=== PATIENT | female | born 1965 | race Caucasian/White ===

== ENCOUNTER 2022-05-29 17:49 | Emergency (ER) | payer OTHER ==
[2022-05-29 18:03] VITALS: BP 118/76; PULSE 76; RESP 18; TEMP 97.7; BMI 38.9
[2022-05-29] MEDS ORDERED: ACETAMINOPHEN 500 MG TABLET (FP) PO ONE (19:11)
[2022-05-29] MEDS ORDERED: ACETAMINOPHEN 500 MG TABLET (FP) ONE (19:48)
== END 2022-05-29 20:02 | disposition home or self-care (01) ==
LOC: JER 17:49
DX: S00.03XA Contusion of scalp, initial encounter (principal); W20.8XXA Other cause of strike by thrown, projected or falling object, initial encounter
CPT/HCPCS: 70450-TC; 99284-25

== ENCOUNTER 2022-06-28 19:18 | Observation (INO) | payer OTHER ==
[2022-06-28] MEDS ORDERED: LACTATED RINGERS SOLUTION 1000 ML INFUS.BAG IV ONE (19:55)
[2022-06-28 20:52] LABS: BASO % 0.8 % (0-2.0); EOS % 3.4 % (0-4.5); HEMATOCRIT 36.6 % (32.4-45.2); HEMOGLOBIN 12.5 GM/dL (10.7-15.3); MCH 29.2 pg (25.7-33.7); MEAN CELL VOLUME 85.7 fl (80-96); MEAN PLT VOLUME 9.7 fl (7.5-11.1); MONO % 9.7 % (3.8-10.2); NEUT % 50.1 % (42.8-82.8); PLATELET COUNT 128 10^3/uL (134-434); RBC 4.27 M/mm3 (3.60-5.2); RDW 13.5 % (11.6-15.6); WHITE BLOOD COUNT 5.1 K/mm3 (4.0-10.0)
[2022-06-28 20:56] LABS: VENOUS BASE EXCESS -0.5 mmol/L (-2-2); VENOUS O2 SATURATION 84.6 % (70-80); VENOUS PCO2 38.7 mmHg (38-52); VENOUS PH 7.409 (7.310-7.410)
[2022-06-28 21:09] LABS: CHLORIDE 98 mmol/L (98-107); SODIUM 133 mmol/L (136-145)
[2022-06-28 21:11] LABS: ANION GAP 7 MMOL/L (8-16); BLOOD UREA NITROGEN 13.1 mg/dL (7-18); CALCIUM 9.4 mg/dL (8.5-10.1); CO2 27 mmol/L (21-32); MAGNESIUM 1.6 mg/dL (1.8-2.4)
[2022-06-28 21:12] LABS: ALBUMIN 3.3 g/dl (3.4-5.0); LIPASE 162 U/L (73-393)
[2022-06-28 21:18] LABS: CREATININE 0.7 mg/dL (0.55-1.3); PHOSPHOROUS 3.2 mg/dL (2.5-4.9); SGOT/AST 28 U/L (15-37); SGPT/ALT 33 U/L (13-61)
[2022-06-28 21:19] LABS: TOT PROT 7.4 g/dl (6.4-8.2)
[2022-06-28 21:20] LABS: ALK PHOS 205 U/L (45-117)
[2022-06-28 21:24] LABS: BILIRUBIN,TOTAL 1.4 mg/dL (0.2-1)
[2022-06-28 21:40] LABS: GLUCOSE,RANDOM 410 mg/dL (74-106)
[2022-06-28] MEDS ORDERED: INSULIN REGULAR HUMAN 100 UNITS/ML *VIAL SQ ONE (21:44)
[2022-06-28] MEDS ORDERED: ONDANSETRON 4 MG/2 ML VIAL IVPB ONE (21:57)
[2022-06-28] MEDS ORDERED: ONDANSETRON 4 MG/2 ML VIAL ONE (21:58)
[2022-06-28 23:07] LABS: URINE APPEARANCE CLEAR; URINE BILIRUBIN NEGATIVE (NEGATIVE); URINE COLOR YELLOW; URINE GLUCOSE (UA) 3+ (NEGATIVE); URINE KETONE NEGATIVE (NEGATIVE); URINE LEUK ESTERASE NEGATIVE (NEGATIVE); URINE NITRITE NEGATIVE (NEGATIVE); URINE PROTEIN NEGATIVE (NEGATIVE); URINE UROBILINOGEN 0.2 mg/dL (0.2-1.0)
[2022-06-28] MEDS ORDERED: MAGNESIUM SULF 50% (8.12 MEQ/2 ML-1 GM VIAL) IVPB ONE (23:45)
[2022-06-29] MEDS ORDERED: MAGNESIUM SULFATE IN WATER 2 GM/50 ML IVPB IVPB ONE (00:56)
[2022-06-29] MEDS: INSULIN SLIDING SCALE (NOVOLOG) 1 VIAL SQ SCH ×4 (06:10→21:21)
[2022-06-29 08:18] VITALS: BMI 38.9
[2022-06-29] MEDS ORDERED: INSULIN (LEVEMIR) 100 UNITS/ML UNITS SQ SCH ×2 (10:00→17:15)
[2022-06-29] MEDS: ENOXAPARIN NA (PORCINE) 40 MG/0.4 ML DISP.SYRIN SQ SCH (10:25)
[2022-06-29 10:43] LABS: HEMATOCRIT 35.5 % (32.4-45.2); HEMOGLOBIN 12.4 GM/dL (10.7-15.3); MCH 29.9 pg (25.7-33.7); MEAN CELL VOLUME 85.3 fl (80-96); MEAN PLT VOLUME 10.4 fl (7.5-11.1); PLATELET COUNT 135 10^3/uL (134-434); RBC 4.16 M/mm3 (3.60-5.2); RDW 13.3 % (11.6-15.6); WHITE BLOOD COUNT 5.3 K/mm3 (4.0-10.0)
[2022-06-29 11:05] LABS: ALBUMIN 3.1 g/dl (3.4-5.0); BLOOD UREA NITROGEN 10.5 mg/dL (7-18); CALCIUM 9.2 mg/dL (8.5-10.1)
[2022-06-29 11:08] LABS: CREATININE 0.5 mg/dL (0.55-1.3); MAGNESIUM 1.8 mg/dL (1.8-2.4)
[2022-06-29 11:09] LABS: PHOSPHOROUS 3.1 mg/dL (2.5-4.9)
[2022-06-29 11:10] LABS: BILIRUBIN,TOTAL 1.8 mg/dL (0.2-1); TOT PROT 7.4 g/dl (6.4-8.2)
[2022-06-29] MEDS ORDERED: INSULIN (NOVOLOG) ASPART 100 UNITS/ML 10ML VIAL SQ SCH ×2 (17:15→17:20)
[2022-06-29] MEDS ORDERED: INSULIN (NOVOLOG) ASPART 100 UNITS/ML 10ML VIAL ONE (21:09)
[2022-06-30] MEDS: INSULIN SLIDING SCALE (NOVOLOG) 1 VIAL SQ SCH ×4 (06:36→21:29)
[2022-06-30] MEDS: INSULIN (LEVEMIR) 100 UNITS/ML UNITS SQ SCH ×2 (08:57→21:28)
[2022-06-30 09:50] LABS: BASO % 1.1 % (0-2.0); EOS % 4.3 % (0-4.5); HEMATOCRIT 37.8 % (32.4-45.2); HEMOGLOBIN 13.1 GM/dL (10.7-15.3); LYMPH % 36.8 % (8-40); MCH 29.7 pg (25.7-33.7); MCHC 34.6 g/dl (32.0-36.0); MEAN CELL VOLUME 85.8 fl (80-96); MONO % 10.6 % (3.8-10.2); NEUT % 47.2 % (42.8-82.8); PLATELET COUNT 137 10^3/uL (134-434); RBC 4.41 M/mm3 (3.60-5.2); RDW 13.8 % (11.6-15.6); WHITE BLOOD COUNT 5.4 K/mm3 (4.0-10.0)
[2022-06-30] MEDS: ENOXAPARIN NA (PORCINE) 40 MG/0.4 ML DISP.SYRIN SQ SCH (10:14)
[2022-06-30 10:29] LABS: ALBUMIN 3.1 g/dl (3.4-5.0); CALCIUM 9.7 mg/dL (8.5-10.1); MAGNESIUM 1.7 mg/dL (1.8-2.4)
[2022-06-30 10:32] LABS: CREATININE 0.5 mg/dL (0.55-1.3); PHOSPHOROUS 3.7 mg/dL (2.5-4.9)
[2022-06-30 10:34] LABS: BILIRUBIN,TOTAL 1.5 mg/dL (0.2-1); TOT PROT 7.3 g/dl (6.4-8.2)
[2022-06-30] MEDS: INSULIN (NOVOLOG) ASPART 100 UNITS/ML 10ML VIAL SQ SCH ×2 (11:25→17:09)
[2022-07-01] MEDS: INSULIN SLIDING SCALE (NOVOLOG) 1 VIAL SQ SCH ×2 (06:42→11:52)
[2022-07-01] MEDS: INSULIN (LEVEMIR) 100 UNITS/ML UNITS SQ SCH (06:42)
[2022-07-01] MEDS: INSULIN (NOVOLOG) ASPART 100 UNITS/ML 10ML VIAL SQ SCH ×2 (06:43→11:59)
[2022-07-01] MEDS: ENOXAPARIN NA (PORCINE) 40 MG/0.4 ML DISP.SYRIN SQ SCH (10:11)
[2022-07-01] MEDS ORDERED: INSULIN (NOVOLOG) ASPART 100 UNITS/ML 10ML VIAL ONE (11:50)
[2022-07-01 12:35] VITALS: BP 124/77; PULSE 78; RESP 20; TEMP 97.4
== END 2022-07-01 15:26 | disposition home or self-care (01) ==
LOC: JER 19:18 → JERBED 23:28 → J6S 06-29 04:35
PROVIDERS: ADMIT Internal Medicine; ATTEND Internal Medicine
PROC: 3E023GC Introduction of Other Therapeutic Substance into Muscle, Percutaneous Approach (ICD-10-PCS; principal; 2022-06-28)
PROC: 3E013VG Introduction of Insulin into Subcutaneous Tissue, Percutaneous Approach (ICD-10-PCS; 2022-06-28)
PROC: 3E0337Z Introduction of Electrolytic and Water Balance Substance into Peripheral Vein, Percutaneous Approach (ICD-10-PCS; 2022-06-28)
PROC: 3E033GC Introduction of Other Therapeutic Substance into Peripheral Vein, Percutaneous Approach (ICD-10-PCS; 2022-06-28)
DX: E11.65 Type 2 diabetes mellitus with hyperglycemia (principal); J45.909 Unspecified asthma, uncomplicated; F99 Mental disorder, not otherwise specified; E78.5 Hyperlipidemia, unspecified; R53.1 Weakness; R42 Dizziness and giddiness; E66.01 Morbid (severe) obesity due to excess calories; Z68.39 Body mass index [BMI] 39.0-39.9, adult
CPT/HCPCS: 0241U-QW; 36415; 71045-TC-FY; 80053; 81003; 82803; 82962; 83036; 83605; 83690; 83735; 84100; 84484; 85025; 85027; 87086; 87186; 93005; 93010; 96372; 96374; 99285-25; G0378

== ENCOUNTER 2022-07-12 20:03 | Emergency (ER) | payer OTHER ==
[2022-07-12 20:11] VITALS: BP 126/60; PULSE 82; RESP 20; TEMP 97.8; BMI 38.9
[2022-07-12] MEDS ORDERED: KETOROLAC TROMETHAMINE 30 MG/1 ML VIAL IM ONE (22:01)
[2022-07-12] MEDS ORDERED: KETOROLAC TROMETHAMINE 30 MG/1 ML VIAL ONE (22:06)
== END 2022-07-12 23:14 | disposition home or self-care (01) ==
LOC: JER 20:03 → JERFT 20:03
PROC: 3E0233Z Introduction of Anti-inflammatory into Muscle, Percutaneous Approach (ICD-10-PCS; principal; 2022-07-12)
DX: S63.501A Unspecified sprain of right wrist, initial encounter (principal); M25.531 Pain in right wrist; X58.XXXA Exposure to other specified factors, initial encounter; Y93.02 Activity, running
CPT/HCPCS: 73110-TC-RT-FY; 99284-25

== ENCOUNTER 2022-07-23 17:17 | Emergency (ER) | payer OTHER ==
[2022-07-23 17:20] VITALS: RESP 18; BMI 37.5
[2022-07-23] MEDS ORDERED: ACETAMINOPHEN 325 MG TABLET (FP) PO ONE (23:44)
[2022-07-23] MEDS ORDERED: ACETAMINOPHEN 325 MG TABLET (FP) ONE (23:46)
[2022-07-24 01:21] VITALS: BP 100/54; PULSE 70; TEMP 97.8
== END 2022-07-24 01:56 | disposition home or self-care (01) ==
LOC: JER 17:17
DX: M25.531 Pain in right wrist (principal); M25.561 Pain in right knee; S63.501A Unspecified sprain of right wrist, initial encounter; X58.XXXA Exposure to other specified factors, initial encounter
CPT/HCPCS: 71045-TC-FY; 73030-TC-LT-FY; 73030-TC-RT-FY; 73110-TC-RT-FY; 73562-TC-RT-FY; 82962; 99284-25

== ENCOUNTER 2022-08-27 16:19 | Emergency (ER) | payer OTHER ==
[2022-08-27 16:26] VITALS: BP 124/74; PULSE 78; RESP 18; TEMP 97; BMI 39.6
[2022-08-27] MEDS ORDERED: metFORMIN HCL 500 MG TABLET (FP) PO ONE (17:54)
[2022-08-27] MEDS ORDERED: metFORMIN HCL 500 MG TABLET (FP) ONE (17:57)
== END 2022-08-27 19:42 | disposition home or self-care (01) ==
LOC: JER 16:19
DX: M79.675 Pain in left toe(s) (principal)
CPT/HCPCS: 82962; 99283-25

== ENCOUNTER 2022-08-31 22:19 | Emergency (ER) | payer OTHER ==
[2022-08-31 22:34] VITALS: RESP 18; BMI 36.8
[2022-09-01 00:32] LABS: INR 1.31 (0.83-1.09); PROTHROMBIN TIME (PATIENT) 15.1 SEC (9.7-13.0)
[2022-09-01 00:33] LABS: CALCIUM 9.7 mg/dL (8.5-10.1)
[2022-09-01 00:34] LABS: ALBUMIN 3.6 g/dl (3.4-5.0); BLOOD UREA NITROGEN 27.5 mg/dL (7-18); MAGNESIUM 1.4 mg/dL (1.8-2.4)
[2022-09-01 00:35] LABS: ACTIVATED PTT 32.6 SECONDS (25.2-36.5)
[2022-09-01 00:37] LABS: CREATININE 1.2 mg/dL (0.55-1.3); PHOSPHOROUS 5.4 mg/dL (2.5-4.9)
[2022-09-01 00:38] LABS: BILIRUBIN,TOTAL 1.5 mg/dL (0.2-1)
[2022-09-01 00:49] LABS: BASO % 0.6 % (0-2.0); EOS % 1.5 % (0-4.5); HEMATOCRIT 39.4 % (32.4-45.2); HEMOGLOBIN 13.3 GM/dL (10.7-15.3); LYMPH % 26.5 % (8-40); MCH 28.9 pg (25.7-33.7); MCHC 33.6 g/dl (32.0-36.0); MEAN CELL VOLUME 85.8 fl (80-96); MEAN PLT VOLUME 10.2 fl (7.5-11.1); MONO % 6.7 % (3.8-10.2); NEUT % 64.7 % (42.8-82.8); PLATELET COUNT 190 10^3/uL (134-434); RDW 13.9 % (11.6-15.6); WHITE BLOOD COUNT 11.4 K/mm3 (4.0-10.0)
[2022-09-01] MEDS ORDERED: SODIUM CHLORIDE 0.9% 500 ML INFUS.BAG IV ONE (01:50)
[2022-09-01 03:12] LABS: EPI CELLS 24 /uL (0-25.1); HYALINE CASTS 11 /uL (0-3.1); URINE APPEARANCE CLOUDY; URINE BACTERIA 2669 /uL (0-1359); URINE BILIRUBIN NEGATIVE (NEGATIVE); URINE COLOR DK YELLOW; URINE GLUCOSE (UA) TRACE (NEGATIVE); URINE KETONE TRACE (NEGATIVE); URINE LEUK ESTERASE 2+ (NEGATIVE); URINE NITRITE POSITIVE (NEGATIVE); URINE PROTEIN 2+ (NEGATIVE); URINE UROBILINOGEN 0.2 mg/dL (0.2-1.0); URINE WBC 463 /uL (0-25.8)
[2022-09-01] MEDS ORDERED: CEFTRIAXONE 1 GM in DEXTROSE 5%-WATER - 100 ML IVPB ONE (03:16)
[2022-09-01] MEDS ORDERED: CEFTRIAXONE 1 GM/50 ML BAG ONE (03:27)
[2022-09-01 04:07] VITALS: BP 126/61; PULSE 65; TEMP 97.5
== END 2022-09-01 04:07 | disposition home or self-care (01) ==
LOC: JER 22:19
DX: R10.32 Left lower quadrant pain (principal); R61 Generalized hyperhidrosis; R19.7 Diarrhea, unspecified; N39.0 Urinary tract infection, site not specified
CPT/HCPCS: 36415; 74177-TC; 80053; 81003; 83735; 84100; 84484; 85025; 85610; 85730; 87086; 87186; 93005; 93010; 99285-25; Q9967

== ENCOUNTER 2022-11-27 15:59 | Emergency (ER) | payer OTHER ==
[2022-11-27 16:12] VITALS: BP 127/69; PULSE 76; RESP 16; TEMP 98.1; BMI 37.3
[2022-11-27] MEDS ORDERED: ACETAMINOPHEN 500 MG TABLET (FP) PO ONE (18:24)
[2022-11-27 18:35] LABS: BASO % 0.8 % (0-2.0); EOS % 3.7 % (0-4.5); HEMATOCRIT 32.5 % (32.4-45.2); HEMOGLOBIN 11.4 GM/dL (10.7-15.3); LYMPH % 40.8 % (8-40); MCHC 35.1 g/dl (32.0-36.0); MEAN CELL VOLUME 85.4 fl (80-96); MEAN PLT VOLUME 9.5 fl (7.5-11.1); MONO % 9.7 % (3.8-10.2); PLATELET COUNT 124 10^3/uL (134-434); RBC 3.81 M/mm3 (3.60-5.2)
[2022-11-27] MEDS ORDERED: ACETAMINOPHEN 500 MG TABLET (FP) ONE ×2 (18:51→18:52)
[2022-11-27 19:07] LABS: CALCIUM 8.3 mg/dL (8.5-10.1)
[2022-11-27 19:08] LABS: BLOOD UREA NITROGEN 12.3 mg/dL (7-18)
[2022-11-27 19:10] LABS: CREATININE 0.7 mg/dL (0.55-1.3)
[2022-11-27 19:12] LABS: BILIRUBIN,TOTAL 1.3 mg/dL (0.2-1); TOT PROT 6.9 g/dl (6.4-8.2)
[2022-11-27 19:15] LABS: N-TERMINAL BNP 73.7 pg/ml (5-125)
[2022-11-27] MEDS ORDERED: SODIUM CHLORIDE 0.9% 500 ML INFUS.BAG IV ONE (19:23)
== END 2022-11-27 21:19 | disposition home or self-care (01) ==
LOC: JER 15:59
DX: M54.6 Pain in thoracic spine (principal); M79.89 Other specified soft tissue disorders; R73.9 Hyperglycemia, unspecified; Z20.822 Contact with and (suspected) exposure to COVID-19
CPT/HCPCS: 0241U-QW; 36415; 71046-TC-FY; 80053; 82962; 83880; 85025; 99284-25

== ENCOUNTER 2023-01-29 16:32 | Emergency (ER) | payer OTHER ==
[2023-01-29 16:55] VITALS: BP 133/66; PULSE 80; RESP 18; TEMP 98.3; BMI 36.6
[2023-01-29] MEDS ORDERED: ALBUTEROL SO4 2.5/IPRATROPIUM 0.5 INH SOL 3 ML VIAL.NEB. NEB ONE ×2 (17:34→17:44)
[2023-01-29] MEDS ORDERED: guaiFENesin/D-M SUGAR-FREE/ACLHOL-FREE (200 MG/10 MG) 5 ML PO ONE (17:35)
[2023-01-29] MEDS ORDERED: ACETAMINOPHEN 325 MG TABLET (FP) ONE (17:36)
[2023-01-29] MEDS ORDERED: ACETAMINOPHEN 500 MG TABLET (FP) PO ONE (17:36)
[2023-01-29] MEDS ORDERED: guaiFENesin/D-M SUGAR-FREE/ACLHOL-FREE 5 ML UNIT DOSE PO ONE (18:00)
== END 2023-01-29 19:07 | disposition home or self-care (01) ==
LOC: JERFT 16:32
PROC: 3E0F7GC Introduction of Other Therapeutic Substance into Respiratory Tract, Via Natural or Artificial Opening (ICD-10-PCS; principal; 2023-01-29)
DX: U07.1 COVID-19 (principal)
CPT/HCPCS: 0241U-QW; 94640; 99283-25

== ENCOUNTER 2023-02-24 18:23 | Emergency (ER) | payer OTHER ==
[2023-02-24 18:31] VITALS: BP 125/60; PULSE 84; RESP 18; TEMP 98.2; BMI 38.9
[2023-02-24] MEDS ORDERED: DEXAMETHASONE SOD PHOSPHATE 4 MG/1 ML VIAL IM ONE (18:38)
[2023-02-24] MEDS ORDERED: DEXAMETHASONE SOD PHOSPHATE 4 MG/1 ML VIAL ONE (18:40)
[2023-02-24] MEDS ORDERED: ACETAMINOPHEN 500 MG TABLET (FP) PO ONE (19:19)
[2023-02-24] MEDS ORDERED: ACETAMINOPHEN 500 MG TABLET (FP) ONE (19:20)
[2023-02-24 19:35] LABS: THROAT:GRP A STREP DETECTED (NOTDETECTED)
[2023-02-24] MEDS ORDERED: AMOXICILLIN 500 MG CAPSULE (FP) PO ONE (20:42)
[2023-02-24] MEDS ORDERED: AMOXICILLIN 250 MG CAPSULE ONE (20:44)
== END 2023-02-24 19:40 | disposition home or self-care (01) ==
LOC: JERFT 18:23
PROC: 3E023GC Introduction of Other Therapeutic Substance into Muscle, Percutaneous Approach (ICD-10-PCS; principal; 2023-02-24)
DX: J02.0 Streptococcal pharyngitis (principal); R07.0 Pain in throat; M54.9 Dorsalgia, unspecified; R05.9 Cough, unspecified; R09.3 Abnormal sputum; R09.81 Nasal congestion; Z20.822 Contact with and (suspected) exposure to COVID-19
CPT/HCPCS: 0241U-QW; 87651; 96372; 99284-25

== ENCOUNTER 2023-11-05 22:29 | Emergency (ER) | payer OTHER ==
[2023-11-05 22:41] VITALS: BP 131/70; PULSE 77; RESP 18; TEMP 97.8; BMI 37.8
[2023-11-05] MEDS ORDERED: IBUPROFEN 600 MG TABLET (FP) PO ONE (23:19)
[2023-11-05] MEDS: IBUPROFEN 600 MG TABLET (FP) PO ONE (23:20)
[2023-11-06] MEDS: SODIUM CHLORIDE 0.9% 500 ML INFUS.BAG IV ONE ×2 (01:26)
[2023-11-06 01:48] LABS: BASO % 0.9 % (0-2.0); HEMATOCRIT 33.4 % (32.4-45.2); HEMOGLOBIN 11.4 GM/dL (10.7-15.3); LYMPH % 35.5 % (8-40); MCH 30.5 pg (25.7-33.7); MCHC 34.1 g/dl (32.0-36.0); MEAN CELL VOLUME 89.6 fl (80-96); MEAN PLT VOLUME 9.4 fl (7.5-11.1); MONO % 9.1 % (3.8-10.2); NEUT % 50.5 % (42.8-82.8); PLATELET COUNT 117 10^3/uL (134-434); RBC 3.73 M/mm3 (3.60-5.2); RDW 13.7 % (11.6-15.6); WHITE BLOOD COUNT 4.2 K/mm3 (4.0-10.0)
[2023-11-06 02:17] LABS: CHLORIDE 102 mmol/L (98-107); POTASSIUM 4.1 mmol/L (3.5-5.1); SODIUM 135 mmol/L (136-145)
[2023-11-06 02:19] LABS: ALBUMIN 3.2 g/dl (3.4-5.0); ANION GAP 9 mmol/L (4-13); BLOOD UREA NITROGEN 14.3 mg/dL (7-18); CALCIUM 8.9 mg/dL (8.5-10.1); CO2 25 mmol/L (21-32)
[2023-11-06 02:22] LABS: SGOT/AST 37 U/L (15-37); SGPT/ALT 36 U/L (13-61)
[2023-11-06 02:23] LABS: CREATININE 0.7 mg/dL (0.55-1.3)
[2023-11-06 02:24] LABS: BILIRUBIN,TOTAL 1.8 mg/dL (0.2-1); TOT PROT 7.1 g/dl (6.4-8.2)
[2023-11-06 02:25] LABS: ALK PHOS 229 U/L (45-117)
[2023-11-06] MEDS ORDERED: INSULIN (NOVOLOG MIX 70/30) 100 UNITS/ML MDV SQ ONE (02:34)
[2023-11-06] MEDS: INSULIN (NOVOLOG MIX 70/30) 100 UNITS/ML MDV SQ ONE (02:37)
[2023-11-06 02:42] LABS: HIV INTERPRETATION NEGATIVE (NEGATIVE)
[2023-11-06] MEDS ORDERED: metFORMIN HCL 500 MG TABLET (FP) ONE (03:04)
[2023-11-06] MEDS: metFORMIN HCL 500 MG TABLET (FP) PO ONE (03:11)
[2023-11-06 03:52] LABS: GLUCOSE,RANDOM 550 mg/dL (74-106)
== END 2023-11-06 03:15 | disposition home or self-care (01) ==
LOC: JER 22:29
PROC: 3E013VG Introduction of Insulin into Subcutaneous Tissue, Percutaneous Approach (ICD-10-PCS; principal; 2023-11-06)
DX: S99.922A Unspecified injury of left foot, initial encounter (principal); E11.65 Type 2 diabetes mellitus with hyperglycemia; W22.8XXA Striking against or struck by other objects, initial encounter; Z20.822 Contact with and (suspected) exposure to COVID-19
CPT/HCPCS: 0241U-QW; 36415; 73660-TC-LT-FY; 80053; 82010; 82962; 85025; 87389; 87536; 96372; 99284-25

== ENCOUNTER 2024-10-10 01:39 | Emergency (ER) | payer OTHER ==
[2024-10-10 01:51] VITALS: PULSE 82; RESP 18; TEMP 98.7; BMI 35.4
[2024-10-10] MEDS ORDERED: SULFAMETHOXAZOLE/TRIMETHOPRIM 800MG/160MG D.S. TABLET ONE (02:27)
[2024-10-10] MEDS ORDERED: ACETAMINOPHEN INJECTION 100 ML ONE (02:27)
[2024-10-10] MEDS: ACETAMINOPHEN 1000 MG/100 ML BAG IVPB ONE (02:32)
[2024-10-10] MEDS: SULFAMETHOXAZOLE/TRIMETHOPRIM 800MG/160MG D.S. TABLET PO ONE (02:32)
[2024-10-10] MEDS: SODIUM CHLORIDE 0.9% 500 ML INFUS.BAG IV ONE (02:32)
[2024-10-10 02:34] LABS: ABSOLUTE IMMATURE GRANULOCYTES 0.02 x10^3/uL (0.0-0.031); BASOPHILS # 0.05 x10^3/uL (0.01-0.08); EOSINOPHILS # 0.18 x10^3/uL (0.04-0.36); RDW 13.4 % (12.3-16.6)
[2024-10-10 02:36] LABS: EOSINOPHIL % 3.0 % (0.7-5.8); IMMATURE PLATELET FRACTION # 5.40 x10^3/uL; MCHC 33.9 g/dl (32.2-35.5); MEAN CELL VOLUME 87.5 fl (79.4-94.8); MEAN PLT VOLUME 11.8 fl (9.4-12.3); MONOCYTE # 0.57 x10^3/uL (0.24-0.86); MONOCYTE % 9.4 % (4.7-12.5)
[2024-10-10 02:52] LABS: CO2 28.0 mmol/L (21-32); GLUCOSE,RANDOM 316.0 mg/dL (74-106)
[2024-10-10 02:55] LABS: CREATININE 0.6 mg/dL (0.55-1.3); SGOT/AST 28.0 U/L (15-37); SGPT/ALT 32.0 U/L (13-61)
[2024-10-10 02:57] LABS: TOT PROT 7.5 g/dl (6.4-8.2)
[2024-10-10 02:58] LABS: ALK PHOS 223.0 U/L (45-117)
[2024-10-10 03:44] LABS: HCV DIAGNOSTIC IN-HOUSE W/RFLX NON-REACTIVE (NONREACTIVE); HIV INTERPRETATION NEGATIVE (NEGATIVE)
[2024-10-10 05:01] LABS: ERYTHROCYTE SEDIMENTATION RATE 48 mm/hr (0-30)
== END 2024-10-10 04:50 | disposition home or self-care (01) ==
LOC: JER 01:39
PROC: 3E033NZ Introduction of Analgesics, Hypnotics, Sedatives into Peripheral Vein, Percutaneous Approach (ICD-10-PCS; principal; 2024-10-10)
DX: L03.115 Cellulitis of right lower limb (principal); R68.83 Chills (without fever); M79.661 Pain in right lower leg
CPT/HCPCS: 36415; 80053; 82962; 85025; 85651; 86140; 86803; 87389; 99284-25

== ENCOUNTER 2024-10-24 18:21 | Inpatient (IN) | payer OTHER ==
[2024-10-24 18:26] VITALS: BMI 41.5
[2024-10-24 20:08] LABS: BG HCT 36.0 % (32.4-45.2); MCHC 33.5 g/dl (32.2-35.5); MEAN CELL VOLUME 89.0 fl (79.4-94.8); MEAN PLT VOLUME 10.8 fl (9.4-12.3); RDW 13.7 % (12.3-16.6); VENOUS BASE EXCESS -0.8 mmol/L (-2-2); VENOUS O2 SATURATION 36.3 % (70-80); VENOUS PCO2 45.2 mmHg (38-52); VENOUS PH 7.358 (7.310-7.410)
[2024-10-24 20:46] LABS: CO2 28.0 mmol/L (21-32); GLUCOSE,RANDOM 217.0 mg/dL (74-106)
[2024-10-24 20:49] LABS: CREATININE 0.6 mg/dL (0.55-1.3); SGOT/AST 36.0 U/L (15-37); SGPT/ALT 31.0 U/L (13-61)
[2024-10-24 20:51] LABS: TOT PROT 7.3 g/dl (6.4-8.2)
[2024-10-24 20:52] LABS: ALK PHOS 213.0 U/L (45-117)
[2024-10-24 20:54] LABS: N-TERMINAL BNP 88.0 pg/ml (5-125)
[2024-10-24] MEDS ORDERED: MAGNESIUM SULFATE IN WATER 2 GM/50 ML IVPB IVPB ONE (21:15)
[2024-10-24] MEDS: MAGNESIUM SULFATE IN WATER 2 GM/50 ML IVPB IVPB ONE (21:20)
[2024-10-24] MEDS ORDERED: FUROSEMIDE 40 MG/4 ML INJECTABLE VIAL ONE (22:27)
[2024-10-24] MEDS: FUROSEMIDE 100 MG/10 ML INJECTABLE VIAL IVPB ONE (22:56)
[2024-10-25] MEDS: INSULIN ASPART SLIDING SCALE (NOVOLOG) 1 VIAL SQ SCH (00:27)
[2024-10-25] MEDS: LEVOTHYROXINE NA 25 MCG TABLET (FP) PO SCH (06:56)
[2024-10-25 08:06] LABS: MCHC 32.9 g/dl (32.2-35.5); MEAN CELL VOLUME 88.0 fl (79.4-94.8); MEAN PLT VOLUME 11.8 fl (9.4-12.3); RDW 13.7 % (12.3-16.6)
[2024-10-25 08:43] LABS: CO2 29.0 mmol/L (21-32); GLUCOSE,RANDOM 301.0 mg/dL (74-106)
[2024-10-25 08:46] LABS: CREATININE 0.5 mg/dL (0.55-1.3); SGOT/AST 31.0 U/L (15-37); SGPT/ALT 29.0 U/L (13-61)
[2024-10-25 08:47] LABS: TOT PROT 6.6 g/dl (6.4-8.2)
[2024-10-25 08:49] LABS: ALK PHOS 193.0 U/L (45-117)
[2024-10-25] MEDS: FUROSEMIDE 40 MG/4 ML INJECTABLE VIAL IVPUSH SCH (09:38)
[2024-10-25] MEDS: ASPIRIN COATED 81 MG TABLET.EC PO SCH (09:38)
[2024-10-25] MEDS ORDERED: ALBUTEROL SO4 HFA INHALER IH PRN (10:00)
[2024-10-25] MEDS: BUDESONIDE/FORMOTEROL FUMARATE 160-4.5 MCG (10.3 GM INHALER) IH SCH (15:02)
[2024-10-25] MEDS: MAGNESIUM OXIDE 400 MG TABLET (FP) PO ONE (15:04)
[2024-10-25 17:29] LABS: EPI CELLS 2 /uL (0-25.1); HYALINE CASTS 0 /uL (0-3.1); URINE APPEARANCE CLEAR; URINE BACTERIA 1 /uL (0-1359); URINE BILIRUBIN NEGATIVE (NEGATIVE); URINE COLOR YELLOW; URINE GLUCOSE (UA) 3+ (NEGATIVE); URINE KETONE NEGATIVE (NEGATIVE); URINE LEUK ESTERASE 1+ (NEGATIVE); URINE NITRITE NEGATIVE (NEGATIVE); URINE PROTEIN NEGATIVE (NEGATIVE); URINE RBC 2 /uL (0-23.9); URINE UROBILINOGEN 1.0 mg/dL (0.2-1.0); URINE WBC 3 /uL (0-25.8)
[2024-10-25] MEDS: INSULIN GLARGINE (LANTUS) 100 UNITS/ML UNITS SQ SCH (21:49)
[2024-10-25] MEDS: ATORVASTATIN CA 40 MG TABLET (FP) PO SCH (22:00)
[2024-10-25 22:06] VITALS: RESP 16
[2024-10-25] MEDS: GABAPENTIN 300 MG CAPSULE PO SCH (22:15)
[2024-10-26] MEDS ORDERED: INSULIN ASPART SLIDING SCALE (NOVOLOG) 1 VIAL SQ ONE (06:48)
[2024-10-26] MEDS ORDERED: INSULIN GLARGINE (LANTUS) 100 UNITS/ML UNITS SQ ONE (06:48)
[2024-10-26 07:23] LABS: CO2 27.0 mmol/L (21-32); GLUCOSE,RANDOM 218.0 mg/dL (74-106)
[2024-10-26 07:26] LABS: CREATININE 0.5 mg/dL (0.55-1.3); SGOT/AST 30.0 U/L (15-37); SGPT/ALT 28.0 U/L (13-61)
[2024-10-26 07:28] LABS: TOT PROT 6.8 g/dl (6.4-8.2)
[2024-10-26 07:29] LABS: ALK PHOS 197.0 U/L (45-117)
[2024-10-26 08:19] LABS: INR 1.41 (0.83-1.09); PROTHROMBIN TIME (PATIENT) 15.5 SEC (9.7-13.0)
[2024-10-26 12:08] LABS: MCHC 34.0 g/dl (32.2-35.5); MEAN CELL VOLUME 88.6 fl (79.4-94.8); MEAN PLT VOLUME 11.2 fl (9.4-12.3); RDW 13.7 % (12.3-16.6)
[2024-10-26 12:41] LABS: CO2 28 mmol/L (21-32)
[2024-10-26 12:44] LABS: SGPT/ALT 29 U/L (13-61)
[2024-10-26 12:45] LABS: CREATININE 0.7 mg/dL (0.55-1.3); SGOT/AST 31 U/L (15-37)
[2024-10-26 12:46] LABS: GLUCOSE,RANDOM 435 mg/dL (74-106); TOT PROT 7.3 g/dl (6.4-8.2)
[2024-10-26 12:47] LABS: ALK PHOS 213 U/L (45-117)
[2024-10-26 17:55] VITALS: BP 126/65; PULSE 77; TEMP 97.8
[2024-10-27] MEDS ORDERED: PANTOPRAZOLE 40 MG TABLET PO SCH (10:00)
== END 2024-10-26 20:13 | disposition home or self-care (01) | DRG 442 ==
LOC: JER 18:21 → JERBED 21:33 → OBSVTOIN 21:53 → J4S 22:43
PROVIDERS: ADMIT Hospitalist
DX: K75.81 Nonalcoholic steatohepatitis (NASH) (principal); E87.1 Hypo-osmolality and hyponatremia; Z68.41 Body mass index [BMI] 40.0-44.9, adult; K74.60 Unspecified cirrhosis of liver; E11.40 Type 2 diabetes mellitus with diabetic neuropathy, unspecified; E03.9 Hypothyroidism, unspecified; E66.01 Morbid (severe) obesity due to excess calories; D69.6 Thrombocytopenia, unspecified; E11.65 Type 2 diabetes mellitus with hyperglycemia; E83.42 Hypomagnesemia; D64.9 Anemia, unspecified; R60.0 Localized edema
CPT/HCPCS: 36415; 71045-TC-FY; 76705-TC; 80053; 81003; 82010; 82248; 82570; 82803; 82962; 83735; 83880; 84156; 84484; 85025; 85027; 85610; 87086; 93005; 93010; 93970-TC; 99285-25; G0378

== ENCOUNTER 2024-11-01 20:37 | Emergency (ER) | payer OTHER ==
[2024-11-01 20:51] VITALS: RESP 18; TEMP 98.5; BMI 36.3
[2024-11-01 21:43] LABS: BASOPHILS # 0.03 x10^3/uL (0.01-0.08); RDW 13.9 % (12.3-16.6)
[2024-11-01 21:45] LABS: ABSOLUTE IMMATURE GRANULOCYTES 0.01 x10^3/uL (0.0-0.031); EOSINOPHIL % 3.6 % (0.7-5.8); EOSINOPHILS # 0.14 x10^3/uL (0.04-0.36); IMMATURE PLATELET FRACTION # 3.60 x10^3/uL; MCHC 33.5 g/dl (32.2-35.5); MEAN CELL VOLUME 88.8 fl (79.4-94.8); MEAN PLT VOLUME 11.4 fl (9.4-12.3); MONOCYTE # 0.46 x10^3/uL (0.24-0.86); MONOCYTE % 11.9 % (4.7-12.5)
[2024-11-01 23:30] LABS: ALK PHOS 178.0 U/L (40-150); CO2 23.0 mmol/L (21-32); CREATININE 0.39 mg/dL (0.55-1.3); GLUCOSE,RANDOM 226.0 mg/dL (74-106); SGOT/AST 42.0 U/L (5-34); SGPT/ALT 23.0 U/L (0-55); TOT PROT 6.9 g/dl (6.4-8.2)
[2024-11-01 23:53] VITALS: BP 116/53; PULSE 74
[2024-11-02] MEDS ORDERED: LACTULOSE 20 GM/30 ML UDC (FOR ORAL USE ONLY) ONE (01:14)
[2024-11-02] MEDS ORDERED: MAGNESIUM SULFATE IN WATER 2 GM/50 ML IVPB IVPB ONE (01:15)
[2024-11-02] MEDS: MAGNESIUM SULF 50% (8.12 MEQ/2 ML-1 GM VIAL) IVPB ONE (01:40)
[2024-11-02] MEDS: LACTULOSE 20 GM/30 ML UDC (FOR ORAL USE ONLY) PO ONE (01:40)
== END 2024-11-02 06:04 | disposition home or self-care (01) ==
LOC: JER 20:37
PROC: 3E033GC Introduction of Other Therapeutic Substance into Peripheral Vein, Percutaneous Approach (ICD-10-PCS; principal; 2024-11-02)
DX: R42 Dizziness and giddiness (principal); R53.1 Weakness; R32 Unspecified urinary incontinence; R60.0 Localized edema
CPT/HCPCS: 36415; 71045-TC-FY; 80053; 82140; 82962; 83735; 83880; 84100; 84439; 84443; 84484; 85025; 87637-QW; 93005; 93010; 96374; 99285-25

== ENCOUNTER 2024-11-05 00:03 | Emergency (ER) | payer OTHER ==
[2024-11-05 00:27] VITALS: PULSE 80; BMI 36.3
[2024-11-05 01:20] LABS: MCHC 33.2 g/dl (32.2-35.5); RDW 14.1 % (12.3-16.6)
[2024-11-05 01:21] LABS: IMMATURE PLATELET FRACTION # 3.50 x10^3/uL; MEAN CELL VOLUME 90.8 fl (79.4-94.8); MEAN PLT VOLUME 11.6 fl (9.4-12.3)
[2024-11-05 01:37] LABS: GLUCOSE,RANDOM 240 mg/dL (74-106); TOT PROT 7.0 g/dl (6.4-8.2)
[2024-11-05 01:38] LABS: CO2 24 mmol/L (21-32)
[2024-11-05 01:43] LABS: CREATININE 0.47 mg/dL (0.55-1.3); SGOT/AST 45 U/L (5-34); SGPT/ALT 28 U/L (0-55)
[2024-11-05 01:59] LABS: ALK PHOS 202 U/L (40-150)
[2024-11-05 02:03] LABS: HCV DIAGNOSTIC IN-HOUSE W/RFLX NON-REACTIVE (NONREACTIVE)
[2024-11-05 02:04] LABS: HIV INTERPRETATION NEGATIVE (NEGATIVE)
[2024-11-05 05:49] VITALS: BP 115/55; RESP 15; TEMP 98.4
== END 2024-11-05 09:22 | disposition home or self-care (01) ==
LOC: JER 00:03
DX: M79.89 Other specified soft tissue disorders (principal); R60.0 Localized edema; M79.604 Pain in right leg; M79.605 Pain in left leg
CPT/HCPCS: 36415; 71045-TC-FY; 80053; 82550; 84484; 85025; 86803; 87389; 99284-25

== ENCOUNTER 2024-11-19 01:43 | Emergency (ER) | payer OTHER ==
[2024-11-19 01:54] VITALS: BMI 37.2
[2024-11-19 07:11] VITALS: TEMP 98.2
[2024-11-19 11:51] VITALS: BP 128/74; PULSE 79; RESP 16
== END 2024-11-19 12:12 | disposition home or self-care (01) ==
LOC: JER 01:43
DX: M79.89 Other specified soft tissue disorders (principal)
CPT/HCPCS: 82962; 99283-25

== ENCOUNTER 2025-01-05 23:19 | Emergency (ER) | payer OTHER ==
[2025-01-05 23:37] VITALS: RESP 18; BMI 33.6
[2025-01-06 00:55] LABS: ABSOLUTE IMMATURE GRANULOCYTES 0.03 x10^3/uL (0.0-0.031)
[2025-01-06 00:56] LABS: BASOPHILS # 0.05 x10^3/uL (0.01-0.08); EOSINOPHIL % 4.0 % (0.7-5.8); EOSINOPHILS # 0.27 x10^3/uL (0.04-0.36); IMMATURE PLATELET FRACTION # 5.30 x10^3/uL; MCHC 35.1 g/dl (32.2-35.5); MEAN CELL VOLUME 87.3 fl (79.4-94.8); MEAN PLT VOLUME 11.1 fl (9.4-12.3); MONOCYTE # 0.75 x10^3/uL (0.24-0.86); MONOCYTE % 11.2 % (4.7-12.5); RDW 13.5 % (12.3-16.6)
[2025-01-06 01:13] LABS: GLUCOSE,RANDOM 217.0 mg/dL (74-106); TOT PROT 7.9 g/dl (6.4-8.2)
[2025-01-06 01:14] LABS: CO2 24.0 mmol/L (21-32)
[2025-01-06 01:18] LABS: CREATININE 0.53 mg/dL (0.55-1.3); SGOT/AST 43.0 U/L (5-34); SGPT/ALT 30.0 U/L (0-55)
[2025-01-06 01:25] LABS: N-TERMINAL BNP 141.0 pg/mL (0-299.9)
[2025-01-06 01:56] LABS: ALK PHOS 229.0 U/L (40-150)
[2025-01-06] MEDS ORDERED: MAGNESIUM 1GM/D5W - 1 GM/100 ML IVPB IVPB ONE (02:23)
[2025-01-06] MEDS: MAGNESIUM SULF 50% (8.12 MEQ/2 ML-1 GM VIAL) IVPB ONE (02:32)
[2025-01-06 04:21] VITALS: BP 124/64; PULSE 84; TEMP 98.2
== END 2025-01-06 09:08 | disposition home or self-care (01) ==
LOC: JER 23:19
PROC: 3E033GC Introduction of Other Therapeutic Substance into Peripheral Vein, Percutaneous Approach (ICD-10-PCS; principal; 2025-01-06)
DX: R10.11 Right upper quadrant pain (principal); R06.01 Orthopnea
CPT/HCPCS: 36415; 71046-TC-FY; 76705-TC; 80053; 83690; 83735; 83880; 84484; 85025; 96374; 99285-25

== ENCOUNTER 2025-01-09 03:21 | Emergency (ER) | payer OTHER ==
[2025-01-09 03:27] VITALS: BP 107/63; PULSE 76; RESP 18; TEMP 97.8; BMI 35.4
[2025-01-09] MEDS ORDERED: KETOROLAC TROMETHAMINE 30 MG/1 ML VIAL ONE (04:29)
[2025-01-09] MEDS ORDERED: ACETAMINOPHEN 500 MG TABLET (FP) ONE (04:29)
[2025-01-09] MEDS ORDERED: LIDOCAINE 4% PATCH TP ONE (04:29)
[2025-01-09] MEDS: ACETAMINOPHEN 500 MG TABLET (FP) PO ONE (04:36)
[2025-01-09] MEDS: KETOROLAC TROMETHAMINE 30 MG/1 ML VIAL IM ONE (04:36)
[2025-01-09] MEDS: LIDOCAINE 4% PATCH TP ONE (04:37)
[2025-01-09] MEDS ORDERED: LIDOCAINE PATCH REMOVAL MC SCH (22:00)
== END 2025-01-09 06:25 | disposition home or self-care (01) ==
LOC: JER 03:21
PROC: 3E0233Z Introduction of Anti-inflammatory into Muscle, Percutaneous Approach (ICD-10-PCS; principal; 2025-01-09)
DX: M54.2 Cervicalgia (principal)
CPT/HCPCS: 99284-25

== ENCOUNTER 2025-01-18 01:41 | Emergency (ER) | payer OTHER ==
[2025-01-18 01:53] VITALS: BP 99/48; PULSE 81; RESP 18; TEMP 98.1; BMI 33.6
[2025-01-18] MEDS ORDERED: LIDOCAINE 5% TOPICAL PATCH ONE (03:22)
[2025-01-18] MEDS ORDERED: ACETAMINOPHEN 325 MG TABLET (FP) ONE (03:22)
[2025-01-18] MEDS: ACETAMINOPHEN 325 MG TABLET (FP) PO ONE (03:29)
[2025-01-18] MEDS: LIDOCAINE 4% PATCH TP ONE (03:30)
[2025-01-18] MEDS ORDERED: LIDOCAINE PATCH REMOVAL MC SCH (22:00)
== END 2025-01-18 10:44 | disposition home or self-care (01) ==
LOC: JER 01:41
DX: R10.31 Right lower quadrant pain (principal); R10.32 Left lower quadrant pain; M54.2 Cervicalgia; M54.50 Low back pain, unspecified
CPT/HCPCS: 99283-25